=== PATIENT | male | born 1935 | race Caucasian/White ===

== ENCOUNTER 2019-03-26 11:27 | Emergency (ER) | payer MEDICARE, OTHER ==
[2019-03-26] MEDS ORDERED: Sodium Chloride 0.9% 10 ML Syringe FLUSH PRN (11:42)
[2019-03-26 12:18] LABS: CHLORIDE,CL 98 mmol/L (98-107); SODIUM,NA 141 mmol/L (136-145)
[2019-03-26] MEDS ORDERED: Sodium Chloride 0.9% 500 ML IV SCH (12:45)
--- NOTE | 2019-03-26 12:46 | EDM.PDOC ---
ED HPI GENERAL MEDICAL PROBLEM - General Chief Complaint: Neuro Symptoms/Deficits Stated Complaint: Stroke Code Time Seen by Provider: 03/26/19 11:45 Source of Information: Reports: Patient, Other ([facility] staff) History Limitations: Reports: Other (Patient is vague when giving history) - History of Present Illness INITIAL COMMENTS - FREE TEXT/NARRATIVE: Patient sent to ER for evaluation after being observed to have generalized decrease in cognitive functioning over the last three days. Also felt by staff to have decreased extremity strength/movement but no one particular side noted as being worse. Patient has history of generalized weakness in addition to needing to wear a brace on right leg. [facility] also was concerned that patient's right arm had BP of 142/110 and left arm had reading of 59/28. Once in ER it was thought that patient was slightly weaker on right side and stroke code called. Patient himself is aware that he was sent to the ER for "blood pressure concerns ". Initially thought he was at the [place] home, but later knew he was somewhere else to get looked at. He denies feeling any overall changes over the past week/several days. He feels like his usual self at this time. ROS was unremarkable. No known recent med changes. - Related Data Allergies Allergy/AdvReac Type Severity Reaction Status Date / Time celecoxib [From Celebrex] Allergy Cannot Verified 03/26/19 12:48 Remember colestipol Allergy Cannot Verified 03/26/19 12:48 Remember Past Medical History - History Comment History Comment: Refer to printed record provided by [facility] for full listing of chronic medical conditions. ED ROS GENERAL - Review of Systems Review Of Systems: See Below Constitutional: Reports: No Symptoms HEENT: Reports: No Symptoms (no acute changes) Respiratory: Reports: No Symptoms Cardiovascular: Reports: No Symptoms GI/Abdominal: Reports: No Symptoms : Reports: No Symptoms Musculoskeletal: Reports: Other (wears leg brace right leg, chronic weakness in this limb, no acute changes) Skin: Reports: No Symptoms Neurological: Reports: No Symptoms Psychiatric: Reports: No Symptoms Hematologic/Lymphatic: Reports: No Symptoms ED EXAM, GENERAL - Physical Exam Exam: See Below Exam Limited By: No Limitations General Appearance: Alert, WD/WN, No Apparent Distress Eye Exam: Bilateral Eye: EOMI, PERRL Ears: Normal External Exam Nose: Normal Inspection Throat/Mouth: Normal Inspection, Normal Lips, Normal Voice, No Airway Compromise Head: Atraumatic, Normocephalic Neck: Supple, Non-Tender, Full Range of Motion Respiratory/Chest: No Respiratory Distress, Lungs Clear, Normal Breath Sounds, No Accessory Muscle Use, Chest Non-Tender Cardiovascular: Regular Rate, Rhythm, No Murmur GI/Abdominal: Normal Bowel Sounds, Soft, Non-Tender, No Distention (Male) Exam: Deferred Rectal (Males) Exam: Deferred Back Exam: No: CVA Tenderness (L), CVA Tenderness (R), Muscle Spasm, Paraspinal Tenderness, Vertebral Tenderness Extremities: Non-Tender, Other (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 Has decreased strength and ability to raise right leg but this is normal per patient (has brace on leg). Able to lift left leg well. Able to squeeze medially well using both legs. Sensation appears to be intact limbs. ). No: Increased Warmth, Mottled, Pallor, Redness Neurological: Alert, Oriented, Normal Cognition, Sensory/Motor Deficit (chronic motor deficit right leg) Psychiatric: Normal Affect, Normal Mood Skin Exam: Warm, Dry, Intact, Normal Color EKG INTERPRETATION EKG Date: 03/26/19 Time: 11:43 Rhythm: Other (Afib with wide QRS) Rate (Beats/Min): 60 [place]: Normal P-Wave: Absent QRS: Wide ST-T: Other (morphology affected by wide QRS complex) QT: Normal Comparison: NA - No Prior EKG EKG Interpretation Comments: No previous EKG for comparison. Nonspecific intraventricular block. Course - Orders/Labs/Meds Labs: Laboratory Tests 03/26/19 03/26/19 03/26/19 Range/Units 11:45 11:45 11:45 WBC 6.7 (4.0-10.2) K/uL RBC 4.08 L (4.33-5.41) M/uL Hgb 12.5 L (13.1-16.8) g/dL Hct 37.7 L (39.0-49.0) % MCV 92.4 (84.0-98.0) fL MCH 30.6 (28.2-33.3) pg MCHC 33.2 (31.7-36.0) g/dL RDW 14.0 (11.2-14.1) % Plt Count 110 L (150-350) K/uL Neut % (Auto) 70.7 (45.0-80.0) % Lymph % (Auto) 17.8 (10.0-50.0) % [place] % (Auto) 8.7 (2.0-14.0) % Eos % (Auto) 2.5 (0.0-5.0) % Baso % (Auto) 0.3 (0.0-2.0) % Neut # (Auto) 4.73 (1.40-7.00) K/uL Lymph # (Auto) 1.19 (0.50-3.50) K/uL [place] # (Auto) 0.58 (0.00-1.00) K/uL Eos # (Auto) 0.17 (0.00-0.50) K/uL Baso # (Auto) 0.02 (0.00-0.20) K/uL PT (9.5-12.0) SEC INR APTT 31.4 H (21.0-31.3) SEC D-Dimer, Quantitative (0-400) ng/mL Sodium 141 (136-145) mmol/L Potassium 4.0 (3.5-5.1) mmol/L Chloride 98 (98-107) mmol/L Carbon Dioxide 34.7 H (21.0-32.0) mmol/L BUN 54 H (7-18) mg/dL Creatinine 1.73 H (0.51-1.17) mg/dL Est Cr Clr Drug Dosing TNP Estimated GFR (MDRD) 38 mL/min Glucose 213 H (74-106) mg/dL Calcium 9.6 (8.5-10.1) mg/dL Magnesium 2.4 (1.8-2.4) mg/dL Total Bilirubin 1.0 (0.2-1.0) mg/dL AST 18 (15-37) U/L ALT 25 (12-78) U/L Alkaline Phosphatase 124 H (46-116) IU/L Creatine Kinase 18 L (26-308) U/L Creatine Kinase Index 4.4 H (0.0-2.5) % CK-MB (CK-2) 0.80 (0.00-3.60) ng/mL Troponin I 0.010 (0.000-0.056) ng/mL NT-Pro-B Natriuret Pep 485 H (0-125) pg/mL Total Protein 6.5 (6.4-8.2) g/dL Albumin 3.0 L (3.4-5.0) g/dL Prolactin (2.6-13.1) ng/mL 03/26/19 03/26/19 03/26/19 Range/Units 11:45 11:45 11:45 WBC (4.0-10.2) K/uL RBC (4.33-5.41) M/uL Hgb (13.1-16.8) g/dL Hct (39.0-49.0) % MCV (84.0-98.0) fL MCH (28.2-33.3) pg MCHC (31.7-36.0) g/dL RDW (11.2-14.1) % Plt Count (150-350) K/uL Neut % (Auto) (45.0-80.0) % Lymph % (Auto) (10.0-50.0) % [place] % (Auto) (2.0-14.0) % Eos % (Auto) (0.0-5.0) % Baso % (Auto) (0.0-2.0) % Neut # (Auto) (1.40-7.00) K/uL Lymph # (Auto) (0.50-3.50) K/uL [place] # (Auto) (0.00-1.00) K/uL Eos # (Auto) (0.00-0.50) K/uL Baso # (Auto) (0.00-0.20) K/uL PT 17.4 H (9.5-12.0) SEC INR 1.6 APTT (21.0-31.3) SEC D-Dimer, Quantitative 384 (0-400) ng/mL Sodium (136-145) mmol/L Potassium (3.5-5.1) mmol/L Chloride (98-107) mmol/L Carbon Dioxide (21.0-32.0) mmol/L BUN (7-18) mg/dL Creatinine (0.51-1.17) mg/dL Est Cr Clr Drug Dosing Estimated GFR (MDRD) mL/min Glucose (74-106) mg/dL Calcium (8.5-10.1) mg/dL Magnesium (1.8-2.4) mg/dL Total Bilirubin (0.2-1.0) mg/dL AST (15-37) U/L ALT (12-78) U/L Alkaline Phosphatase (46-116) IU/L Creatine Kinase (26-308) U/L Creatine Kinase Index (0.0-2.5) % CK-MB (CK-2) (0.00-3.60) ng/mL Troponin I (0.000-0.056) ng/mL NT-Pro-B Natriuret Pep (0-125) pg/mL Total Protein (6.4-8.2) g/dL Albumin (3.4-5.0) g/dL Prolactin 25.8 H (2.6-13.1) ng/mL Meds: Medications Discontinued Medications Generic Name Dose Route Start Last Admin Trade Name Freq PRN Reason Stop Dose Admin Sodium Chloride 500 mls @ 250 mls/hr 03/26/19 12:45 Normal Saline IV ASDIRECTED ZACHERY Sodium Chloride 500 mls @ as directed 03/26/19 13:20 Normal Saline IV 03/26/19 13:21 .STK-MED ONE Sodium Chloride 10 ml 03/26/19 11:42 Saline Flush FLUSH ASDIRECTED PRN Keep Vein Open - Radiology Interpretation Free Text/Narrative:: Chest xray stable. 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 Heart size enlarged. No focal acute changes noted. CT Results Date: 03/26/19 CT Results Time: 12:03 (No acute changes suggestive of stroke noted. No other acute abnormalities identified by Radiology. ) - Re-Assessments/Exams Free Text/Narrative Re-Assessment/Exam: Stoke scale when performed scored "1" which was due to mild slurred speech. No obvious acute neuro deficits identified. Patient knew he was not at [facility]. Is relatively new to [facility] and was not able to identify himself as being in [facility]. No obvious acute findings noted on physical exam. Patient continued to say that he felt like usual self overall. He did not wish for us to contact Neurology once CT results available and discussed with him. Labs noted that patient's Bun/Cr were a bit higher than last reading. Small bolus of NS ordered. WBC and Troponin normal EKG showed Afib with wide complex QRS. No previous EKG on file. Call placed to [place] and confirmed with [facility] that 2017 EKG at their facility showed similar afib/flutter with ventricular paced rhythm. BPs stable. No significant deviation noted left vs right arm. No further intervention indicated at this time. Recommend continued observation by [facility] staff for any other additional changes or trends. To follow up on [facility] rounds with [facility] or at [facility] clinic if concerns continue. 03/27/19 17:16 Prolactin level elevated. Consider medication-related elevation in addition to patient's chronic kidney disease. To follow up on rounds. Departure - Departure Time of Disposition: 14:43 Disposition: DC/Tfer to SNF 03 Condition: Good Clinical Impression: Cognitive changes - Discharge Information *PRESCRIPTION DRUG MONITORING PROGRAM REVIEWED*: Not Applicable *COPY OF PRESCRIPTION DRUG MONITORING REPORT IN PATIENT PORSCHE: Not Applicable Referrals: Sheets-Kristen Kimball MD [Primary Care Provider] - Forms: ED Department Discharge Additional Instructions: Continue to observe for changes/trends. Follow up on rounds with [facility] or at [facility] clinic if no significant improvement is noted. Follow up otherwise as needed if sudden worsening observed.
[2019-03-26] MEDS ORDERED: Sodium Chloride 0.9% 500 ML IV ONE (13:20)
== END 2019-03-26 15:10 ==
LOC: LL.ED 11:27
DX: R41.89 Other symptoms and signs involving cognitive functions and awareness (principal); N18.9 Chronic kidney disease, unspecified; Z88.6 Allergy status to analgesic agent; Z88.8 Allergy status to other drugs, medicaments and biological substances
CPT/HCPCS: 36415; 70450; 71046; 80053; 82550; 82553; 83735; 83880; 84146; 84484; 85025; 85379; 85610; 85730; 93005; 96360; 96361; 99284; 99285-25; J7040

== ENCOUNTER 2019-04-01 07:21 | Inpatient (IN) | payer MEDICARE, OTHER ==
[2019-04-01] MEDS ORDERED: Sodium Chloride 0.9% 10 ML Syringe FLUSH PRN (08:08)
[2019-04-01 08:16] LABS: CHLORIDE,CL 100 mmol/L (98-107); SODIUM,NA 142 mmol/L (136-145)
--- NOTE | 2019-04-01 08:37 | EDM.PDOC ---
ED HPI GENERAL MEDICAL PROBLEM - General Chief Complaint: General Stated Complaint: altered LOC/ blood pressure problems Time Seen by Provider: 04/01/19 07:40 Source of Information: Reports: Assisted Records, RN Notes Reviewed History Limitations: Reports: Altered Mental Status - History of Present Illness INITIAL COMMENTS - FREE TEXT/NARRATIVE: Patient is a 83-year-old who for the last week has not been doing well yesterday had problems with hypotension at this time we discontinued multiple medications patient appeared to have been doing better then at night was noted by the nurses that he was weaker and by this morning he had slurred speech: Keep a conversation which is not normal for him and was mumbling Onset: Today Duration: Hour(s):, Getting Worse Location: Reports: Head, Generalized Severity: Severe Improves with: Reports: None Associated Symptoms: Reports: Other (Slow speech) - Related Data Allergies Allergy/AdvReac Type Severity Reaction Status Date / Time celecoxib [From Celebrex] Allergy Cannot Verified 04/01/19 09:04 Remember colestipol Allergy Cannot Verified 04/01/19 09:04 Remember Home Meds: Home Meds Acetaminophen [Tylenol] 650 mg PO BID PRN 04/01/19 [History] Albuterol Sulfate 0.63 mg IH QID PRN 04/01/19 [History] Albuterol [Ventolin HFA] 2 puff INH Q6H PRN 04/01/19 [History] Polyethylene Glycol 3350 [Miralax] 17 gm PO DAILY PRN 04/01/19 [History] Past Medical History - History Comment History Comment: Refer to printed record provided by [facility] for full listing of chronic medical conditions. ED ROS GENERAL - Review of Systems Review Of Systems: See Below Constitutional: Reports: Weakness, Other (Unable to transfer or speak) HEENT: Reports: No Symptoms Respiratory: Reports: No Symptoms Cardiovascular: Reports: Dyspnea on Exertion, Edema GI/Abdominal: Reports: No Symptoms : Reports: No Symptoms Musculoskeletal: Reports: No Symptoms Skin: Reports: No Symptoms Neurological: Reports: Trouble Speaking, Difficulty Walking, Weakness Psychiatric: Reports: No Symptoms Hematologic/Lymphatic: Reports: No Symptoms ED EXAM, GENERAL - Physical Exam Exam: See Below Exam Limited By: Physical Impairment General Appearance: Alert, WD/WN, Lethargic, Obtunded, Moderate Distress Ears: Normal External Exam, Normal Canal, Hearing Grossly Normal, Normal TMs Ear Exam: Bilateral Ear: Auricle Normal, Canal Normal, TM normal Nose: Normal Inspection, Normal Mucosa, No Blood Throat/Mouth: Normal Inspection, Normal Lips, Normal Teeth, Normal Gums, Normal Oropharynx, Normal Voice, No Airway Compromise Head: Atraumatic, Normocephalic Neck: Normal Inspection, Supple, Non-Tender, Full Range of Motion Respiratory/Chest: Decreased Breath Sounds Cardiovascular: Normal Peripheral Pulses, Regular Rate, Rhythm, No Edema, No Gallop, No JVD, No Murmur, No Rub GI/Abdominal: Normal Bowel Sounds, Soft, Non-Tender, No Organomegaly, No Distention, No Abnormal Bruit, No Mass (Male) Exam: Deferred Rectal (Males) Exam: Deferred Back Exam: Normal Inspection, Full Range of Motion, NT Extremities: Normal Inspection, Normal Range of Motion, Non-Tender, Normal Capillary Refill, No Pedal Edema Neurological: Slow to Respond Psychiatric: Normal Affect, Normal Mood Skin Exam: Warm, Dry, Intact, Normal Color, No Rash Lymphatic: No Adenopathy Course - Vital Signs Last Recorded V/S: Last Vital Signs Temp 97.3 F 04/01/19 07:22 Pulse 58 L 04/01/19 07:22 Resp 16 04/01/19 07:22 BP 142/82 H 04/01/19 07:22 Pulse Ox 97 04/01/19 07:22 - Orders/Labs/Meds Orders: Active Orders 24 hr Category Date Time Status Peripheral IV Care [RC] . DIRECTED Care 04/01/19 08:08 Active CXR [Chest 1V Frontal] [CR] Stat Exams 04/01/19 07:46 Taken Head wo Cont [CT] Stat Exams 04/01/19 08:10 Taken Sodium Chloride 0.9% [Saline Flush] Med 04/01/19 08:08 Active 10 ml FLUSH ASDIRECTED PRN Peripheral IV Insertion Adult [OM.PC] Routine Oth 04/01/19 08:08 Ordered Medication Orders Sodium Chloride (Saline Flush) 10 ml FLUSH ASDIRECTED PRN PRN Reason: Keep Vein Open Labs: Laboratory Tests 04/01/19 04/01/19 04/01/19 Range/Units 07:55 07:55 07:55 WBC 7.1 (4.0-10.2) K/uL RBC 4.54 (4.33-5.41) M/uL Hgb 13.9 (13.1-16.8) g/dL Hct 41.2 (39.0-49.0) % MCV 90.7 (84.0-98.0) fL MCH 30.6 (28.2-33.3) pg MCHC 33.7 (31.7-36.0) g/dL RDW 14.0 (11.2-14.1) % Plt Count 125 L (150-350) K/uL Neut % (Auto) 69.8 (45.0-80.0) % Lymph % (Auto) 17.2 (10.0-50.0) % [place] % (Auto) 9.8 (2.0-14.0) % Eos % (Auto) 2.8 (0.0-5.0) % Baso % (Auto) 0.4 (0.0-2.0) % Neut # (Auto) 4.96 (1.40-7.00) K/uL Lymph # (Auto) 1.22 (0.50-3.50) K/uL [place] # (Auto) 0.70 (0.00-1.00) K/uL Eos # (Auto) 0.20 (0.00-0.50) K/uL Baso # (Auto) 0.03 (0.00-0.20) K/uL PT 18.8 H (9.5-12.0) SEC INR 1.7 Sodium 142 (136-145) mmol/L Potassium 3.3 L (3.5-5.1) mmol/L Chloride 100 (98-107) mmol/L Carbon Dioxide 34.8 H (21.0-32.0) mmol/L BUN 55 H (7-18) mg/dL Creatinine 1.30 H (0.51-1.17) mg/dL Est Cr Clr Drug Dosing TNP Estimated GFR (MDRD) 52 mL/min Glucose 145 H (74-106) mg/dL Calcium 9.7 (8.5-10.1) mg/dL Total Bilirubin 1.1 H (0.2-1.0) mg/dL AST 21 (15-37) U/L ALT 27 (12-78) U/L Alkaline Phosphatase 131 H (46-116) IU/L Total Protein 7.3 (6.4-8.2) g/dL Albumin 3.4 (3.4-5.0) g/dL Meds: Medications Generic Name Dose Route Start Last Admin Trade Name Grzegorz PRN Reason Stop Dose Admin Sodium Chloride 10 ml 04/01/19 08:08 Saline Flush FLUSH ASDIRECTED PRN Keep Vein Open Departure - Departure Time of Disposition: 09:36 Disposition: Refer to Observation Condition: Serious Clinical Impression: Hypokalemia, CVA (cerebral vascular accident) - Discharge Information Referrals: Kristen Lafleur MD [Primary Care Provider] - Forms: ED Department Discharge - Problem List & Annotations (1) Hypokalemia SNOMED Code(s): 23865001 Code(s): E87.6 - HYPOKALEMIA Status: Acute Current Visit: Yes (2) CVA (cerebrovascular accident) SNOMED Code(s): 442612692 Code(s): I63.9 - CEREBRAL INFARCTION, UNSPECIFIED Status: Acute Current Visit: Yes Annotation/Comment:: Patient has progressively gotten weaker in the last [address] of speech CT of the head is negative at this time (3) Generalized weakness SNOMED Code(s): 69129214 Code(s): R53.1 - WEAKNESS Status: Acute Current Visit: Yes Annotation/ Comment:: Patient has decreased ambulation - Problem List Review Problem List Initiated/Reviewed/Updated: Yes - My Orders Last 24 Hours: My Active Orders 04/01/19 07:46 CXR [Chest 1V Frontal] [CR] Stat 04/01/19 08:08 Peripheral IV Care [RC] . DIRECTED Sodium Chloride 0.9% [Saline Flush] 10 ml FLUSH ASDIRECTED PRN Peripheral IV Insertion Adult [OM.PC] Routine 04/01/19 08:10 Head wo Cont [CT] Stat - Assessment/Plan Admission H&P: Please use this note as an admission H&P Last 24 Hours: My Active Orders 04/01/19 07:46 CXR [Chest 1V Frontal] [CR] Stat 04/01/19 08:08 Peripheral IV Care [RC] . DIRECTED Sodium Chloride 0.9% [Saline Flush] 10 ml FLUSH ASDIRECTED PRN Peripheral IV Insertion Adult [OM.PC] Routine 04/01/19 08:10 Head wo Cont [CT] Stat Plan: At this time we will admit him for observation patient is a ".
[2019-04-01] MEDS ORDERED: Potassium Chloride 10 MEQ in Premix Bag 2 BAG IV ONE (09:34)
[2019-04-01] MEDS: Sodium Chloride 0.9% 1,000 ML IV SCH ×2 (10:12→23:32)
[2019-04-01] MEDS: Potassium Chloride 10 MEQ in Premix Bag 1 BAG IV SCH ×2 (10:27→12:14)
[2019-04-01] MEDS ORDERED: Albuterol 0.021% 0.63 MG/3 ML Neb Soln NEB PRN (16:27)
[2019-04-01] MEDS ORDERED: Polyvinyl Alcohol 1.4% Ophth Soln 15 ML Bottle EYEBOTH PRN (16:27)
[2019-04-01] MEDS ORDERED: KETOCONAZOLE TP SCH (16:30)
[2019-04-01] MEDS ORDERED: guaiFENesin/Dextromethorphan 100-10 MG/5 ML Soln 10 ML Cup PO PRN (17:00)
[2019-04-01] MEDS: Polyvinyl Alcohol 1.4% Ophth Soln 15 ML Bottle EYEBOTH SCH (19:36)
[2019-04-01] MEDS: Carvedilol 25 MG Tab PO SCH (19:37)
[2019-04-02] MEDS: Acetaminophen 325 MG Tab PO PRN ×2 (02:46→19:32)
[2019-04-02] MEDS: Polyvinyl Alcohol 1.4% Ophth Soln 15 ML Bottle EYEBOTH SCH ×4 (08:51→19:33)
[2019-04-02] MEDS: Cholecalciferol (Vitamin D3) 25 MCG Tab PO SCH (08:55)
[2019-04-02] MEDS: Aspirin 81 MG Tab.EC PO SCH (08:56)
[2019-04-02] MEDS: Carvedilol 25 MG Tab PO SCH ×2 (08:56→19:31)
[2019-04-02] MEDS: Sodium Chloride 0.9% 1,000 ML IV SCH (14:33)
--- NOTE | 2019-04-02 19:50 | PCM.PN ---
- General Info Date of Service: 04/02/19 Admission Dx/Problem (Free Text): Patient is a 55-year-old who was brought in from the group home because of this disorientation arthralgia and confusion at this time patient was admitted and started on fluids today patient is less confused and much more oriented and able to speak clear - Review of Systems General: Reports: Weakness HEENT: Reports: No Symptoms Pulmonary: Reports: No Symptoms Cardiovascular: Reports: Dyspnea on Exertion Gastrointestinal: Reports: No Symptoms Genitourinary: Reports: No Symptoms Musculoskeletal: Reports: No Symptoms Skin: Reports: No Symptoms Neurological: Reports: Confusion, Trouble Speaking - Patient Data Vitals - Most Recent: Last Vital Signs Temp 97.4 F 04/02/19 16:00 Pulse 62 04/02/19 19:31 Resp 18 04/02/19 16:00 BP 140/60 04/02/19 19:31 Pulse Ox 97 04/02/19 16:00 Weight - Most Recent: 244 lb 0.016 oz I&O - Last 24 Hours: Intake & Output 04/02/19 04/02/19 04/02/19 06:59 14:59 22:59 Intake Total 738 1106 Output Total 450 300 475 Balance 288 -300 631 Lab Results Last 24 Hours: Laboratory Results - last 24 hr 04/01/19 04/02/19 04/02/19 Range/Units 21:43 07:10 12:20 POC Glucose 204 H 206 H 198 H (65-110) mg/dl 04/02/19 Range/Units 19:14 POC Glucose 206 H (65-110) mg/dl Med Orders - Current: Current Medications Acetaminophen (Tylenol) 650 mg PO BID PRN PRN Reason: Pain Last Admin: 04/02/19 19:32 Dose: 650 mg Albuterol (Proventil Neb Soln) 0.63 mg NEB QID PRN PRN Reason: Shortness of Breath Artificial Tears (Liquitears 1.4% Ophth Soln) 1 ml EYEBOTH QID ZACHERY Last Admin: 04/02/19 19:33 Dose: 1 drop Artificial Tears (Liquitears 1.4% Ophth Soln) 1 ml EYEBOTH QID PRN PRN Reason: Dry Eyes Aspirin (Halfprin) 81 mg PO DAILY ZACHERY Last Admin: 04/02/19 08:56 Dose: 81 mg Carvedilol (Coreg) 25 mg PO Q12HR COUNT INCLUDES THE [facility] Last Admin: 04/02/19 19:31 Dose: 25 mg Cholecalciferol (Vitamin D3) 25 mcg PO Q2D COUNT INCLUDES THE [facility] Last Admin: 04/02/19 08:55 Dose: 25 mcg Guaifenesin/Dextromethorphan (Robitussin Dm) 5 ml PO Q6H PRN PRN Reason: Cough Sodium Chloride (Normal Saline) 1,000 mls @ 75 mls/hr IV ASDIRECTED COUNT INCLUDES THE [facility] Last Admin: 04/02/19 14:33 Dose: 75 mls/hr Influenza Virus Vaccine (Pharmacy To Dose - Influenza Vaccine) 1 each IM ONETIME ONE Stop: 04/02/19 15:31 Non-Formulary Medication (Ketoconazole [Nizoral]) 1 applic TP ASDIRECTED COUNT INCLUDES THE [facility] Sodium Chloride (Saline Flush) 10 ml FLUSH ASDIRECTED PRN PRN Reason: Keep Vein Open Discontinued Medications Potassium Chloride 10 meq/ (Premix) 0 mls @ 50 mls/hr IV Q1H COUNT INCLUDES THE [facility] Stop: 04/01/19 11:31 Last Admin: 04/01/19 12:14 Dose: 50 mls/hr - Exam General: No Acute Distress, Lethargic, Obtunded HEENT: Pupils Equal, Pupils Reactive, EOMI, Mucous Membr. Moist/[place] Neck: Supple Lungs: Decreased Breath Sounds Cardiovascular: Regular Rate, Regular Rhythm GI/Abdominal Exam: Normal Bowel Sounds, Soft, Non-Tender, No Organomegaly, No Distention, No Abnormal Bruit, No Mass, Pelvis Stable Back Exam: Decreased Range of Motion Extremities: Normal Inspection, Normal Range of Motion, Non-Tender, No Pedal Edema, Normal Capillary Refill Neurological: Strength Equal Bilateral Psy/Mental Status: Alert, Normal Affect, Normal Mood - Problem List & Annotations (1) Hypokalemia SNOMED Code(s): 82483220 Code(s): E87.6 - HYPOKALEMIA Status: Acute Current Visit: Yes Annotation/Comment:: We'll start by mouth potassium (2) CVA (cerebrovascular accident) SNOMED Code(s): 286214854 Code(s): I63.9 - CEREBRAL INFARCTION, UNSPECIFIED Status: Acute Current Visit: Yes Annotation/Comment:: Patient seems to be improving CT of the head was negative for CVA we'll continue to observe start physical therapy when first available and continue correcting the potassium (3) Generalized weakness SNOMED Code(s): 13119062 Code(s): R53.1 - WEAKNESS Status: Acute Current Visit: Yes Annotation/ Comment:: Patient looks much better today will increase ambulation in the next 24 hours - Problem List Review Problem List Initiated/Reviewed/Updated: Yes - My Orders Last 24 Hours: My Active Orders 04/01/19 20:00 Carvedilol [Coreg] 25 mg PO Q12HR Polyvinyl Alcohol [LiquiTears 1.4% Ophth Soln] 1 ml EYEBOTH QID 04/02/19 08:00 Aspirin [Halfprin] 81 mg PO DAILY Cholecalciferol (Vitamin D3) [Vitamin D3] 25 mcg PO Q2D 04/02/19 11:20 Consult to Speech Language Pathology [UNIT OPERATOR Evaluation and Treatment] [CONS] Routine - Plan Plan:: Patient doing much better with reports and correction of electrolytes will observe for 24 hours before discharging him back to the group home
--- NOTE | 2019-04-02 21:04 | PCM.SN ---
- Free Text/Narrative Note: 04/02/19 Augusto Kimball MD He is evaluated. Speech has evaluated. Agree with Dr. Anthony note.
[2019-04-02] MEDS: Potassium Chloride 20 MEQ Tab.ER PO SCH (21:11)
[2019-04-03] MEDS: Sodium Chloride 0.9% 1,000 ML IV SCH (04:04)
[2019-04-03 07:59] LABS: CHLORIDE,CL 111 mmol/L (98-107); SODIUM,NA 148 mmol/L (136-145)
[2019-04-03] MEDS: Carvedilol 25 MG Tab PO SCH ×2 (08:11→20:28)
[2019-04-03] MEDS: Potassium Chloride 20 MEQ Tab.ER PO SCH (08:13)
[2019-04-03] MEDS: Acetaminophen 325 MG Tab PO PRN (08:14)
[2019-04-03] MEDS: Aspirin 81 MG Tab.EC PO SCH (08:14)
[2019-04-03] MEDS: Polyvinyl Alcohol 1.4% Ophth Soln 15 ML Bottle EYEBOTH SCH ×4 (08:16→20:28)
[2019-04-03] MEDS ORDERED: Menthol/Methyl Salicylate 85 GM Tube TOP PRN (11:01)
[2019-04-03] MEDS: Sodium Chloride 0.9% 10 ML Syringe FLUSH SCH (20:28)
--- NOTE | 2019-04-03 20:56 | PCM.PN ---
- General Info Date of Service: 04/03/19 Admission Dx/Problem (Free Text): Patient is a 55-year-old who was brought in from the care home because of this disorientation arthralgia and confusion at this time patient was admitted and started on fluids today patient is less confused and much more oriented and able to speak clear Functional Status: Reports: Tolerating Diet - Review of Systems General: Reports: Weakness HEENT: Reports: No Symptoms Pulmonary: Reports: No Symptoms Cardiovascular: Reports: No Symptoms Gastrointestinal: Reports: Decreased Appetite (improved today), Difficulty Swallowing Genitourinary: Reports: Retention Musculoskeletal: Reports: No Symptoms Skin: Reports: No Symptoms Neurological: Reports: Trouble Speaking, Difficulty Walking, Weakness, Change in Speech (garbled) Psychiatric: Reports: No Symptoms - Patient Data Vitals - Most Recent: Last Vital Signs Temp 97.4 F 04/03/19 19:31 Pulse 60 04/03/19 20:28 Resp 18 04/03/19 19:31 BP 154/62 H 04/03/19 20:28 Pulse Ox 96 04/03/19 19:31 Weight - Most Recent: 244 lb 0.016 oz I&O - Last 24 Hours: Intake & Output 04/03/19 04/03/19 04/03/19 06:59 14:59 22:59 Intake Total 770 150 816 Output Total 700 375 Balance 70 150 441 Lab Results Last 24 Hours: Laboratory Results - last 24 hr 04/03/19 04/03/19 04/03/19 Range/Units 07:30 07:30 07:30 WBC 8.4 (4.0-10.2) K/uL RBC 4.25 L (4.33-5.41) M/uL Hgb 13.3 (13.1-16.8) g/dL Hct 39.1 (39.0-49.0) % MCV 92.0 (84.0-98.0) fL MCH 31.3 (28.2-33.3) pg MCHC 34.0 (31.7-36.0) g/dL RDW 14.0 (11.2-14.1) % Plt Count 119 L (150-350) K/uL Neut % (Auto) 83.8 H (45.0-80.0) % Lymph % (Auto) 6.9 L (10.0-50.0) % Dunn % (Auto) 6.5 (2.0-14.0) % Eos % (Auto) 2.4 (0.0-5.0) % Baso % (Auto) 0.4 (0.0-2.0) % Neut # (Auto) 7.04 H (1.40-7.00) K/uL Lymph # (Auto) 0.58 (0.50-3.50) K/uL Dunn # (Auto) 0.55 (0.00-1.00) K/uL Eos # (Auto) 0.20 (0.00-0.50) K/uL Baso # (Auto) 0.03 (0.00-0.20) K/uL PT 23.2 H (9.5-12.0) SEC INR 2.2 Sodium 148 H (136-145) mmol/L Potassium 4.0 (3.5-5.1) mmol/L Chloride 111 H (98-107) mmol/L Carbon Dioxide 30.2 (21.0-32.0) mmol/L BUN 33 H (7-18) mg/dL Creatinine 0.97 (0.51-1.17) mg/dL Est Cr Clr Drug Dosing 55.49 mL/min Estimated GFR (MDRD) > 60 mL/min Glucose 217 H (74-106) mg/dL POC Glucose (65-110) mg/dl Calcium 8.9 (8.5-10.1) mg/dL 04/03/19 04/03/19 04/03/19 Range/Units 07:52 10:59 16:47 WBC (4.0-10.2) K/uL RBC (4.33-5.41) M/uL Hgb (13.1-16.8) g/dL Hct (39.0-49.0) % MCV (84.0-98.0) fL MCH (28.2-33.3) pg MCHC (31.7-36.0) g/dL RDW (11.2-14.1) % Plt Count (150-350) K/uL Neut % (Auto) (45.0-80.0) % Lymph % (Auto) (10.0-50.0) % Dunn % (Auto) (2.0-14.0) % Eos % (Auto) (0.0-5.0) % Baso % (Auto) (0.0-2.0) % Neut # (Auto) (1.40-7.00) K/uL Lymph # (Auto) (0.50-3.50) K/uL Dunn # (Auto) (0.00-1.00) K/uL Eos # (Auto) (0.00-0.50) K/uL Baso # (Auto) (0.00-0.20) K/uL PT (9.5-12.0) SEC INR Sodium (136-145) mmol/L Potassium (3.5-5.1) mmol/L Chloride (98-107) mmol/L Carbon Dioxide (21.0-32.0) mmol/L BUN (7-18) mg/dL Creatinine (0.51-1.17) mg/dL Est Cr Clr Drug Dosing mL/min Estimated GFR (MDRD) mL/min Glucose (74-106) mg/dL POC Glucose 214 H 224 H 238 H (65-110) mg/dl Calcium (8.5-10.1) mg/dL Med Orders - Current: Current Medications Acetaminophen (Tylenol) 650 mg PO BID PRN PRN Reason: Pain Last Admin: 04/03/19 08:14 Dose: 650 mg Albuterol (Proventil Neb Soln) 0.63 mg NEB QID PRN PRN Reason: Shortness of Breath Artificial Tears (Liquitears 1.4% Ophth Soln) 1 ml EYEBOTH QID [facility] Last Admin: 04/03/19 20:28 Dose: 1 drop Artificial Tears (Liquitears 1.4% Ophth Soln) 1 ml EYEBOTH QID PRN PRN Reason: Dry Eyes Aspirin (Halfprin) 81 mg PO DAILY [facility] Last Admin: 04/03/19 08:14 Dose: 81 mg Carvedilol (Coreg) 25 mg PO Q12HR [facility] Last Admin: 04/03/19 20:28 Dose: 25 mg Cholecalciferol (Vitamin D3) 25 mcg PO Q2D [facility] Last Admin: 04/02/19 08:55 Dose: 25 mcg Guaifenesin/Dextromethorphan (Robitussin Dm) 5 ml PO Q6H PRN PRN Reason: Cough Influenza Virus Vaccine (Pharmacy To Dose - Influenza Vaccine) 1 each IM ONETIME ONE Stop: 04/02/19 15:31 Methyl Salicylate (Icy Hot Cream) 0 gm TOP QID PRN PRN Reason: Pain (mild 1-3) Last Admin: 04/03/19 16:45 Dose: 1 applic Potassium Chloride (Klor-Con M20) 20 meq PO DAILY [facility] Last Admin: 04/03/19 08:13 Dose: 20 meq Sodium Chloride (Saline Flush) 10 ml FLUSH ASDIRECTED PRN PRN Reason: Keep Vein Open Sodium Chloride (Saline Flush) 10 ml FLUSH Q12HR [facility] Last Admin: 04/03/19 20:28 Dose: 10 ml Discontinued Medications Sodium Chloride (Normal Saline) 1,000 mls @ 75 mls/hr IV ASDIRECTED [facility] Last Admin: 04/03/19 04:04 Dose: 75 mls/hr Potassium Chloride 10 meq/ (Premix) 0 mls @ 50 mls/hr IV Q1H [facility] Stop: 04/01/19 11:31 Last Admin: 04/01/19 12:14 Dose: 50 mls/hr Non-Formulary Medication (Ketoconazole [Nizoral]) 1 applic TP ASDIRECTED [facility] - Exam Quality Assessment: Urine Catheter, DVT Prophylaxis (coumadin) General: No Acute Distress HEENT: Mucous Membr. Moist/[place] Neck: Trachea Midline, No JVD Lungs: Normal Respiratory Effort, Decreased Breath Sounds Cardiovascular: Regular Rate, Regular Rhythm GI/Abdominal Exam: Soft, Non-Tender, No Distention (Male) Exam: Other (robles catheter) Back Exam: Normal Inspection Extremities: Pedal Edema Skin: Warm, Dry, Intact, Ecchymosis Neurological: No New Focal Deficit, Other (pre-existing deficits) Psy/Mental Status: Other (some confusion) - Problem List & Annotations (1) CVA (cerebrovascular accident) SNOMED Code(s): 600746367 Code(s): I63.9 - CEREBRAL INFARCTION, UNSPECIFIED Status: Acute Current Visit: Yes Annotation/Comment:: Patient seems to be improving CT of the head was negative for CVA we'll continue to observe start physical therapy when first available and continue correcting the potassium (2) Generalized weakness SNOMED Code(s): 19667367 Code(s): R53.1 - WEAKNESS Status: Acute Current Visit: Yes Annotation/ Comment:: Patient looks much better today will increase ambulation in the next 24 hours (3) Hypokalemia SNOMED Code(s): 08566162 Code(s): E87.6 - HYPOKALEMIA Status: Acute Current Visit: Yes Annotation/Comment:: We'll start by mouth potassium (4) Cognitive changes SNOMED Code(s): 704303779 Code(s): R41.89 - OTH SYMPTOMS AND SIGNS W COGNITIVE FUNCTIONS AND AWARENESS Status: Acute Current Visit: No (5) Elevated prolactin level SNOMED Code(s): 540255427 Code(s): E22.9 - HYPERFUNCTION OF PITUITARY GLAND, UNSPECIFIED Status: Acute Current Visit: No (6) Chronic kidney disease SNOMED Code(s): 878112322 Code(s): N18.9 - CHRONIC KIDNEY DISEASE, UNSPECIFIED Status: Chronic Current Visit: No - Problem List Review Problem List Initiated/Reviewed/Updated: Yes - My Orders Last 24 Hours: My Active Orders 04/03/19 05:11 Consult to Occupational Therapy [OT Evaluation and Treatment] [CONS] Routine 04/03/19 08:00 PT Evaluation and Treatment [CONS] Routine 04/03/19 11:01 Menthol/Methyl Salicylate [Icy Hot Cream] 0 gm TOP QID PRN 04/03/19 20:00 Sodium Chloride 0.9% [Saline Flush] 10 ml FLUSH Q12HR 04/04/19 10:00 Swallowing Function w Video [CR] Routine - Plan Plan:: Patient doing much better with reports and correction of electrolytes will observe for 24 hours before discharging him back to the care home 04/03/19 Augusto Kimball MD Improving. Did eat today so will stop IV fluid. Video swallow tomorrow.
[2019-04-04] MEDS: Potassium Chloride 20 MEQ Tab.ER PO SCH (08:51)
[2019-04-04] MEDS: Carvedilol 25 MG Tab PO SCH ×2 (09:00→20:59)
[2019-04-04] MEDS: Acetaminophen 325 MG Tab PO PRN (09:01)
[2019-04-04] MEDS: Aspirin 81 MG Tab.EC PO SCH (09:01)
[2019-04-04] MEDS: Sodium Chloride 0.9% 10 ML Syringe FLUSH SCH ×2 (09:03→21:00)
[2019-04-04] MEDS: Polyvinyl Alcohol 1.4% Ophth Soln 15 ML Bottle EYEBOTH SCH ×4 (09:04→21:00)
[2019-04-04] MEDS: Cholecalciferol (Vitamin D3) 25 MCG Tab PO SCH (09:16)
[2019-04-04] MEDS: Finasteride 5 MG Tab PO SCH (15:10)
[2019-04-04] MEDS ORDERED: Insulin Lispro 100 Units/ML 3 ML Vial SUBCUT ONE (18:22)
[2019-04-04] MEDS ORDERED: Tamsulosin 0.4 MG Cap.ER PO SCH (20:00)
[2019-04-05 07:29] LABS: CHLORIDE,CL 108 mmol/L (98-107); SODIUM,NA 146 mmol/L (136-145)
[2019-04-05] MEDS: Polyvinyl Alcohol 1.4% Ophth Soln 15 ML Bottle EYEBOTH SCH ×2 (07:45→11:48)
[2019-04-05] MEDS: Finasteride 5 MG Tab PO SCH (07:45)
[2019-04-05] MEDS: Potassium Chloride 20 MEQ Tab.ER PO SCH (07:45)
[2019-04-05] MEDS: Carvedilol 25 MG Tab PO SCH (07:45)
[2019-04-05] MEDS: Sodium Chloride 0.9% 10 ML Syringe FLUSH SCH (07:46)
--- NOTE | 2019-04-07 23:10 | PCM.PN ---
- General Info Date of Service: 04/04/19 Admission Dx/Problem (Free Text): Patient is a 55-year-old who was brought in from the alf because of this disorientation arthralgia and confusion at this time patient was admitted and started on fluids today patient is less confused and much more oriented and able to speak clear Functional Status: Reports: Tolerating Diet - Review of Systems General: Reports: Weakness, Appetite (improving) HEENT: Reports: No Symptoms Pulmonary: Reports: No Symptoms Cardiovascular: Reports: No Symptoms Gastrointestinal: Reports: No Symptoms Genitourinary: Reports: Retention Musculoskeletal: Reports: No Symptoms Skin: Reports: No Symptoms Neurological: Reports: Pre-Existing Deficit, Trouble Speaking, Difficulty Walking, Weakness Psychiatric: Reports: Confusion - Patient Data Vitals - Most Recent: Last Vital Signs Temp 98 F 04/05/19 12:00 Pulse 96 04/05/19 12:00 Resp 16 04/05/19 12:00 BP 97/45 L 04/05/19 12:00 Pulse Ox 95 04/05/19 12:00 Weight - Most Recent: 244 lb 0.016 oz Med Orders - Current: Current Medications Discontinued Medications Acetaminophen (Tylenol) 650 mg PO BID PRN PRN Reason: Pain Last Admin: 04/04/19 09:01 Dose: 650 mg Albuterol (Proventil Neb Soln) 0.63 mg NEB QID PRN PRN Reason: Shortness of Breath Artificial Tears (Liquitears 1.4% Ophth Soln) 1 ml EYEBOTH QID COUNTS INCLUDE 234 BEDS AT THE [facility] Last Admin: 04/05/19 11:48 Dose: 1 drop Artificial Tears (Liquitears 1.4% Ophth Soln) 1 ml EYEBOTH QID PRN PRN Reason: Dry Eyes Aspirin (Halfprin) 81 mg PO DAILY COUNTS INCLUDE 234 BEDS AT THE [facility] Last Admin: 04/04/19 09:01 Dose: 81 mg Carvedilol (Coreg) 25 mg PO Q12HR COUNTS INCLUDE 234 BEDS AT THE [facility] Last Admin: 04/05/19 07:45 Dose: 25 mg Cholecalciferol (Vitamin D3) 25 mcg PO Q2D COUNTS INCLUDE 234 BEDS AT THE [facility] Last Admin: 04/04/19 09:16 Dose: 25 mcg Finasteride (Proscar) 5 mg PO DAILY [facility]S INCLUDE 234 BEDS AT THE [facility] Last Admin: 04/05/19 07:45 Dose: 5 mg Guaifenesin/Dextromethorphan (Robitussin Dm) 5 ml PO Q6H PRN PRN Reason: Cough Sodium Chloride (Normal Saline) 1,000 mls @ 75 mls/hr IV ASDIRECTED COUNTS INCLUDE 234 BEDS AT THE [facility] Last Admin: 04/03/19 04:04 Dose: 75 mls/hr Potassium Chloride 10 meq/ (Premix) 0 mls @ 50 mls/hr IV Q1H [facility] Stop: 04/01/19 11:31 Last Admin: 04/01/19 12:14 Dose: 50 mls/hr Influenza Virus Vaccine (Pharmacy To Dose - Influenza Vaccine) 1 each IM ONETIME ONE Stop: 04/02/19 15:31 Influenza Virus Vaccine (Fluzone High-Dose Syringe) 180 mcg IM .ONCE ONE Stop: 04/04/19 18:46 Insulin Human Lispro (Humalog) 4 unit SUBCUT ONETIME ONE Stop: 04/04/19 18:23 Last Admin: 04/04/19 18:38 Dose: 4 unit Methyl Salicylate (Icy Hot Cream) 0 gm TOP QID PRN PRN Reason: Pain (mild 1-3) Last Admin: 04/03/19 16:45 Dose: 1 applic Non-Formulary Medication (Ketoconazole [Nizoral]) 1 applic TP ASDIRECTED COUNTS INCLUDE 234 BEDS AT THE [facility] Potassium Chloride (Klor-Con M20) 20 meq PO DAILY [facility] INCLUDE 234 BEDS AT THE [facility] Last Admin: 04/05/19 07:45 Dose: 20 meq Sodium Chloride (Saline Flush) 10 ml FLUSH ASDIRECTED PRN PRN Reason: Keep Vein Open Sodium Chloride (Saline Flush) 10 ml FLUSH Q12HR COUNTS INCLUDE 234 BEDS AT THE [facility] Last Admin: 04/05/19 07:46 Dose: 10 ml Tamsulosin HCl (Flomax) 0.4 mg PO BEDTIME COUNTS INCLUDE 234 BEDS AT THE [facility] Last Admin: 04/04/19 20:59 Dose: 0.4 mg - Exam Quality Assessment: Urine Catheter General: No Acute Distress HEENT: Mucous Membr. Moist/[place] Neck: Trachea Midline, No JVD Lungs: Normal Respiratory Effort, Decreased Breath Sounds Cardiovascular: Regular Rate, Regular Rhythm GI/Abdominal Exam: Soft, Non-Tender, No Distention (Male) Exam: Other (blood in robles catheter) Back Exam: Decreased Range of Motion Extremities: Non-Tender, Pedal Edema Skin: Warm, Dry, Intact, Ecchymosis Neurological: Other (speech still garbled) Psy/Mental Status: Normal Affect, Normal Mood - Problem List & Annotations (1) CVA (cerebrovascular accident) SNOMED Code(s): 092252791 Code(s): I63.9 - CEREBRAL INFARCTION, UNSPECIFIED Status: Acute Annotation/Comment:: Patient seems to be improving CT of the head was negative for CVA we'll continue to observe start physical therapy when first available and continue correcting the potassium (2) Generalized weakness SNOMED Code(s): 92114395 Code(s): R53.1 - WEAKNESS Status: Acute Annotation/Comment:: Patient looks much better today will increase ambulation in the next 24 hours (3) Hypokalemia SNOMED Code(s): 19431727 Code(s): E87.6 - HYPOKALEMIA Status: Acute Annotation/Comment:: We'll start by mouth potassium (4) Cognitive changes SNOMED Code(s): 683083760 Code(s): R41.89 - [facility] SYMPTOMS AND SIGNS W COGNITIVE FUNCTIONS AND AWARENESS Status: Acute (5) Elevated prolactin level SNOMED Code(s): 387363464 Code(s): E22.9 - HYPERFUNCTION OF PITUITARY GLAND, UNSPECIFIED Status: Acute (6) Chronic kidney disease SNOMED Code(s): 695514024 Code(s): N18.9 - CHRONIC KIDNEY DISEASE, UNSPECIFIED Status: Chronic - Problem List Review Problem List Initiated/Reviewed/Updated: Yes - Plan Plan:: Patient doing much better with reports and correction of electrolytes will observe for 24 hours before discharging him back to the alf 04/03/19 Augusto Kimball MD Improving. Did eat today so will stop IV fluid. Video swallow tomorrow. 04/04/19 Blood clots in robles. Nurse irrigating. Coumadin has been on hold. PT-INR still therapeutic. Hold aspirin. Speech evaluating him. PT-OT working with him.
--- NOTE | 2019-04-07 23:15 | PCM.PN ---
- General Info Date of Service: 04/05/19 (late entry) Functional Status: Reports: Tolerating Diet - Review of Systems General: Reports: Weakness HEENT: Reports: No Symptoms Pulmonary: Reports: No Symptoms Cardiovascular: Reports: No Symptoms Gastrointestinal: Reports: No Symptoms Genitourinary: Reports: Retention Musculoskeletal: Reports: No Symptoms Skin: Reports: Bruising Neurological: Reports: Pre-Existing Deficit, Trouble Speaking, Difficulty Walking, Weakness Psychiatric: Reports: Confusion - Patient Data Vitals - Most Recent: Last Vital Signs Temp 98 F 04/05/19 12:00 Pulse 96 04/05/19 12:00 Resp 16 04/05/19 12:00 BP 97/45 L 04/05/19 12:00 Pulse Ox 95 04/05/19 12:00 Weight - Most Recent: 244 lb 0.016 oz Med Orders - Current: Current Medications Discontinued Medications Acetaminophen (Tylenol) 650 mg PO BID PRN PRN Reason: Pain Last Admin: 04/04/19 09:01 Dose: 650 mg Albuterol (Proventil Neb Soln) 0.63 mg NEB QID PRN PRN Reason: Shortness of Breath Artificial Tears (Liquitears 1.4% Ophth Soln) 1 ml EYEBOTH QID [facility] Last Admin: 04/05/19 11:48 Dose: 1 drop Artificial Tears (Liquitears 1.4% Ophth Soln) 1 ml EYEBOTH QID PRN PRN Reason: Dry Eyes Aspirin (Halfprin) 81 mg PO DAILY [facility] Last Admin: 04/04/19 09:01 Dose: 81 mg Carvedilol (Coreg) 25 mg PO Q12HR [facility] Last Admin: 04/05/19 07:45 Dose: 25 mg Cholecalciferol (Vitamin D3) 25 mcg PO Q2D [facility] Last Admin: 04/04/19 09:16 Dose: 25 mcg Finasteride (Proscar) 5 mg PO DAILY [facility] Last Admin: 04/05/19 07:45 Dose: 5 mg Guaifenesin/Dextromethorphan (Robitussin Dm) 5 ml PO Q6H PRN PRN Reason: Cough Sodium Chloride (Normal Saline) 1,000 mls @ 75 mls/hr IV ASDIRECTED [facility] Last Admin: 04/03/19 04:04 Dose: 75 mls/hr Potassium Chloride 10 meq/ (Premix) 0 mls @ 50 mls/hr IV Q1H [facility] Stop: 04/01/19 11:31 Last Admin: 04/01/19 12:14 Dose: 50 mls/hr Influenza Virus Vaccine (Pharmacy To Dose - Influenza Vaccine) 1 each IM ONETIME ONE Stop: 04/02/19 15:31 Influenza Virus Vaccine (Fluzone High-Dose 2019-20 Syringe) 180 mcg IM .ONCE ONE Stop: 04/04/19 18:46 Insulin Human Lispro (Humalog) 4 unit SUBCUT ONETIME ONE Stop: 04/04/19 18:23 Last Admin: 04/04/19 18:38 Dose: 4 unit Methyl Salicylate (Icy Hot Cream) 0 gm TOP QID PRN PRN Reason: Pain (mild 1-3) Last Admin: 04/03/19 16:45 Dose: 1 applic Non-Formulary Medication (Ketoconazole [Nizoral]) 1 applic TP ASDIRECTED [facility] Potassium Chloride (Klor-Con M20) 20 meq PO DAILY [facility] Last Admin: 04/05/19 07:45 Dose: 20 meq Sodium Chloride (Saline Flush) 10 ml FLUSH ASDIRECTED PRN PRN Reason: Keep Vein Open Sodium Chloride (Saline Flush) 10 ml FLUSH Q12HR [facility] Last Admin: 04/05/19 07:46 Dose: 10 ml Tamsulosin HCl (Flomax) 0.4 mg PO BEDTIME [facility] Last Admin: 04/04/19 20:59 Dose: 0.4 mg - Exam Quality Assessment: Urine Catheter (blood clearing) General: Cooperative, No Acute Distress HEENT: Mucous Membr. Moist/[place] Neck: Trachea Midline, No JVD Lungs: Normal Respiratory Effort, Decreased Breath Sounds Cardiovascular: Regular Rate, Regular Rhythm GI/Abdominal Exam: Soft, Non-Tender, No Distention (Male) Exam: Other (robles catheter) Back Exam: Normal Inspection Extremities: Non-Tender, Pedal Edema Skin: Warm, Dry, Intact, Ecchymosis Wound/Incisions: Healing Well Neurological: No New Focal Deficit Psy/Mental Status: Normal Affect, Normal Mood - Problem List & Annotations (1) CVA (cerebrovascular accident) SNOMED Code(s): 723194588 Code(s): I63.9 - CEREBRAL INFARCTION, UNSPECIFIED Status: Acute Qualifiers: CVA mechanism: occlusion Precerebral and cerebral artery: middle cerebral artery Laterality of affected vessel: bilateral Qualified Code(s): I63.513 - Cerebral infarction due to unspecified occlusion or stenosis of bilateral middle cerebral arteries (2) Generalized weakness SNOMED Code(s): 89873485 Code(s): R53.1 - WEAKNESS Status: Acute (3) Hypokalemia SNOMED Code(s): 00836241 Code(s): E87.6 - HYPOKALEMIA Status: Acute (4) Cognitive changes SNOMED Code(s): 242160703 Code(s): R41.89 - [facility] SYMPTOMS AND SIGNS W COGNITIVE FUNCTIONS AND AWARENESS Status: Acute (5) Elevated prolactin level SNOMED Code(s): 535169905 Code(s): E22.9 - HYPERFUNCTION OF PITUITARY GLAND, UNSPECIFIED Status: Acute (6) Chronic kidney disease SNOMED Code(s): 423443358 Code(s): N18.9 - CHRONIC KIDNEY DISEASE, UNSPECIFIED Status: Chronic Qualifiers: Chronic kidney disease stage: stage 3 (moderate) Qualified Code(s): N18.3 - Chronic kidney disease, stage 3 (moderate) - Problem List Review Problem List Initiated/Reviewed/Updated: Yes - Plan Plan:: Patient doing much better with reports and correction of electrolytes will observe for 24 hours before discharging him [facility] 04/03/19 Augusto Kimball MD Improving. Did eat today so will stop IV fluid. Video swallow tomorrow. 04/04/19 (late entry) Blood clots in robles. Nurse irrigating. Coumadin has been on hold. PT-INR still therapeutic. Hold aspirin. Speech evaluating him. PT-OT working with him. 04/05/19 (late entry) Augusto Kimball MD He is ready to be transferred back to skilled facility [facility].
--- NOTE | 2019-04-07 23:18 | PCM.DCSUM1 ---
Discharge Summary - Hospital Course Diagnosis: Stroke: Yes Modified Annamarie Scale: Mod.Sev.Disability ;Unable to Walk/Attend Bodily Needs W/ O Assistance Modified Pleasants Scale Score: 4 - Discharge Data Discharge Date: 04/05/19 Discharge Disposition: DC/Tfer to SNF 03 Condition: Fair - Referral to Home Health Primary Care Physician: Kristen Lafleur MD - Discharge Diagnosis/Problem(s) (1) CVA (cerebrovascular accident) SNOMED Code(s): 971923638 ICD Code: I63.9 - CEREBRAL INFARCTION, UNSPECIFIED Status: Acute Qualifiers: CVA mechanism: occlusion Precerebral and cerebral artery: middle cerebral artery Laterality of affected vessel: bilateral Qualified Code(s): I63.513 - Cerebral infarction due to unspecified occlusion or stenosis of bilateral middle cerebral arteries (2) Generalized weakness SNOMED Code(s): 94343579 ICD Code: R53.1 - WEAKNESS Status: Acute (3) Hypokalemia SNOMED Code(s): 47295176 ICD Code: E87.6 - HYPOKALEMIA Status: Acute (4) Cognitive changes SNOMED Code(s): 290650203 ICD Code: R41.89 - OT SYMPTOMS AND SIGNS W COGNITIVE FUNCTIONS AND AWARENESS Status: Acute (5) Elevated prolactin level SNOMED Code(s): 726128986 ICD Code: E22.9 - HYPERFUNCTION OF PITUITARY GLAND, UNSPECIFIED Status: Acute (6) Chronic kidney disease SNOMED Code(s): 732475143 ICD Code: N18.9 - CHRONIC KIDNEY DISEASE, UNSPECIFIED Status: Chronic Qualifiers: Chronic kidney disease stage: stage 3 (moderate) Qualified Code(s): N18.3 - Chronic kidney disease, stage 3 (moderate) - Patient Summary/Data Consults: Consultations 04/02/19 11:20 Consult to Speech Language Pathology [[employer] Evaluation and Treatment] [CONS] Routine 04/03/19 05:11 Consult to Occupational Therapy [OT Evaluation and Treatment] [CONS] Routine 04/03/19 08:00 PT Evaluation and Treatment [CONS] Routine - Patient Instructions Diet: Diabetic Diet, Mechanical Soft (Thin liquids, no straws) Activity: As Tolerated Driving: Do Not Drive Showering/Bathing: May Shower Other/Special Instructions: robles catheter routine cares. PT-OT referral to evaluate and treat. ST referral to evaluate and treat. - Discharge Plan *PRESCRIPTION DRUG MONITORING PROGRAM REVIEWED*: Not Applicable *COPY OF PRESCRIPTION DRUG MONITORING REPORT IN PATIENT PORSCHE: Not Applicable Prescriptions/Med Rec: Finasteride [Proscar] 5 mg PO DAILY #30 tablet Tamsulosin [Flomax] 0.4 mg PO BEDTIME #30 cap.er Home Medications: Home Meds Acetaminophen [Tylenol] 650 mg PO BID PRN 04/01/19 [History] Albuterol Sulfate 0.63 mg IH QID PRN 04/01/19 [History] Albuterol [Ventolin HFA] 2 puff INH Q6H PRN 04/01/19 [History] Aspirin [Halfprin] 81 mg PO DAILY 04/01/19 [History] Carvedilol 25 mg PO BID 04/01/19 [History] Cholecalciferol (Vitamin D3) [Vitamin D3] 1,000 unit PO Q2D 04/01/19 [History] Dextran 70/Hypromellose [Artificial Tears] 1 drop EYEBOTH QID PRN 04/01/19 [ History] Dextran 70/Hypromellose [Artificial Tears] 1 drop EYEBOTH QID PRN 04/01/19 [ History] Digoxin 125 mcg PO DAILY 04/01/19 [History] Insulin Aspart [NovoLOG] 20 units SUBCUT TIDMEALS 04/01/19 [History] Insulin Glarg,Human.Rec.Analog [Lantus] 64 unit SQ DAILY@20 04/01/19 [History] Ketoconazole [Nizoral 2% Crm] 1 applic TOP ASDIRECTED 04/01/19 [History] Ketoconazole [Nizoral] 1 applic TP ASDIRECTED 04/01/19 [History] Lactulose [Chronulac] 15 ml PO DAILY 04/01/19 [History] Methyl Salicylate/Menthol [Muscle Rub] 85 gm TP QID PRN 04/01/19 [History] Miconazole Nitrate [Micro-Guard] 85 gm TP BID 04/01/19 [History] Mineral Oil/I-Prop Myr/Water [Minerin] 473 ml TP ASDIRECTED PRN 04/01/19 [ History] Naproxen Sodium 220 mg PO BID PRN 04/01/19 [History] Nitroglycerin [Nitrostat] 0.4 mg SL ASDIRECTED PRN 04/01/19 [History] Polyethylene Glycol 3350 [Miralax] 17 gm PO DAILY PRN 04/01/19 [History] Simvastatin 20 mg PO DAILY@199904/01/19 [History] Sodium Chloride/Aloe Vera [[place] Saline Nasal Gel [place]] 2 sprays NASBOTH BID [History] Tiotropium [Spiriva HandiHaler] 18 mcg INH DAILY 04/01/19 [History] Vit A/Vit C/Vit E/Zinc/Copper [Preservision Areds Softgel] 1 each PO BID [History] Warfarin Sodium [Coumadin] 5 mg PO SUMOWEFRSA@169904/01/19 [History] Warfarin [Coumadin] 2.5 mg PO TUTH@169904/01/19 [History] guaiFENesin/Dextromethorphan [Guaifenesin Dm Syrup] 5 ml PO Q6H PRN 04/01/19 [ History] Vit C/E/Zn/Coppr/Lutein/Zeaxan [Preservision Areds 2 Softgel] 1 cap PO BID 04/02 [History] Finasteride [Proscar] 5 mg PO DAILY #30 tablet 04/05/19 [Rx] Tamsulosin [Flomax] 0.4 mg PO BEDTIME #30 cap.er 04/05/19 [Rx] Oxygen Therapy Mode: Nasal Cannula Oxygen Flow Rate (L/min): 2 Forms: ED Department Discharge Referrals: Kristen Lafleur MD [Primary Care Provider] - - Discharge Summary/Plan Comment DC Time >30 min.: Yes - Patient Data Vitals - Most Recent: Last Vital Signs Temp 98 F 04/05/19 12:00 Pulse 96 04/05/19 12:00 Resp 16 04/05/19 12:00 BP 97/45 L 04/05/19 12:00 Pulse Ox 95 04/05/19 12:00 Weight - Most Recent: 244 lb 0.016 oz Med Orders - Current: Current Medications Discontinued Medications Acetaminophen (Tylenol) 650 mg PO BID PRN PRN Reason: Pain Last Admin: 04/04/19 09:01 Dose: 650 mg Albuterol (Proventil Neb Soln) 0.63 mg NEB QID PRN PRN Reason: Shortness of Breath Artificial Tears (Liquitears 1.4% Ophth Soln) 1 ml EYEBOTH QID [facility] Last Admin: 04/05/19 11:48 Dose: 1 drop Artificial Tears (Liquitears 1.4% Ophth Soln) 1 ml EYEBOTH QID PRN PRN Reason: Dry Eyes Aspirin (Halfprin) 81 mg PO DAILY [facility] Last Admin: 04/04/19 09:01 Dose: 81 mg Carvedilol (Coreg) 25 mg PO Q12HR [facility] Last Admin: 04/05/19 07:45 Dose: 25 mg Cholecalciferol (Vitamin D3) 25 mcg PO Q2D [facility] Last Admin: 04/04/19 09:16 Dose: 25 mcg Finasteride (Proscar) 5 mg PO DAILY [facility] Last Admin: 04/05/19 07:45 Dose: 5 mg Guaifenesin/Dextromethorphan (Robitussin Dm) 5 ml PO Q6H PRN PRN Reason: Cough Sodium Chloride (Normal Saline) 1,000 mls @ 75 mls/hr IV ASDIRECTED [facility] Last Admin: 04/03/19 04:04 Dose: 75 mls/hr Potassium Chloride 10 meq/ (Premix) 0 mls @ 50 mls/hr IV Q1H [facility] Stop: 04/01/19 11:31 Last Admin: 04/01/19 12:14 Dose: 50 mls/hr Influenza Virus Vaccine (Pharmacy To Dose - Influenza Vaccine) 1 each IM ONETIME ONE Stop: 04/02/19 15:31 Influenza Virus Vaccine (Fluzone High-Dose 2019-20 Syringe) 180 mcg IM .ONCE ONE Stop: 04/04/19 18:46 Insulin Human Lispro (Humalog) 4 unit SUBCUT ONETIME ONE Stop: 04/04/19 18:23 Last Admin: 04/04/19 18:38 Dose: 4 unit Methyl Salicylate (Icy Hot Cream) 0 gm TOP QID PRN PRN Reason: Pain (mild 1-3) Last Admin: 04/03/19 16:45 Dose: 1 applic Non-Formulary Medication (Ketoconazole [Nizoral]) 1 applic TP ASDIRECTED [facility] Potassium Chloride (Klor-Con M20) 20 meq PO DAILY [facility] Last Admin: 04/05/19 07:45 Dose: 20 meq Sodium Chloride (Saline Flush) 10 ml FLUSH ASDIRECTED PRN PRN Reason: Keep Vein Open Sodium Chloride (Saline Flush) 10 ml FLUSH Q12HR [facility] Last Admin: 04/05/19 07:46 Dose: 10 ml Tamsulosin HCl (Flomax) 0.4 mg PO BEDTIME [facility] Last Admin: 04/04/19 20:59 Dose: 0.4 mg
== END 2019-04-05 15:30 | DRG 65 ==
LOC: LL.ED 07:21 → LL.MS 09:29 → UNDOADMOB 09:29 → LL.MS 10:40 → INTOOBSV 16:23 → OBSVTOIN 16:23
PROVIDERS: ADMIT Family Medicine; ATTEND Family Medicine
DX: I63.9 Cerebral infarction, unspecified (principal); R47.02 Dysphasia; I63.513 Cerebral infarction due to unspecified occlusion or stenosis of bilateral middle cerebral arteries; R53.1 Weakness; E22.1 Hyperprolactinemia; R41.89 Other symptoms and signs involving cognitive functions and awareness; I50.30 Unspecified diastolic (congestive) heart failure; E87.6 Hypokalemia; G31.84 Mild cognitive impairment of uncertain or unknown etiology; N18.3 Chronic kidney disease, stage 3 (moderate); I95.9 Hypotension, unspecified; E66.9 Obesity, unspecified; I48.91 Unspecified atrial fibrillation; E11.22 Type 2 diabetes mellitus with diabetic chronic kidney disease; E78.00 Pure hypercholesterolemia, unspecified; J44.9 Chronic obstructive pulmonary disease, unspecified; M19.90 Unspecified osteoarthritis, unspecified site; Z79.82 Long term (current) use of aspirin; Z79.01 Long term (current) use of anticoagulants; Z79.899 Other long term (current) drug therapy; Z79.4 Long term (current) use of insulin; Z88.8 Allergy status to other drugs, medicaments and biological substances; Z91.14 Patient's other noncompliance with medication regimen; Z95.0 Presence of cardiac pacemaker; Z95.5 Presence of coronary angioplasty implant and graft; Z88.1 Allergy status to other antibiotic agents; Z68.36 Body mass index [BMI] 36.0-36.9, adult
CPT/HCPCS: 36415; 51702; 70450; 71045; 80053; 81001; 85025; 85610; 96374; 99285; J3480 ×2; J7030; 51798; 74230; 80048; 82140; 82962; 92526-GN; 92610-GN; 92611-GN; 97110-GP; 97163-GP; 97530-GP; A9270-GY; J1815

== ENCOUNTER 2022-10-14 14:23 | Emergency (ER) | payer OTHER, MEDICARE, MEDICAID ==
[2022-10-14] MEDS ORDERED: Sodium Chloride 0.9% 10 ML Syringe FLUSH PRN (14:25)
[2022-10-14] MEDS ORDERED: Sodium Chloride 0.9% 1,000 ML IV ONE (14:27)
[2022-10-14] MEDS: Nitroglycerin 0.4 MG Tab.SL SL PRN ×3 (14:43→14:53)
[2022-10-14 15:28] LABS: ANION GAP 8.8 meq/L (7-15); CHLORIDE,CL 104 mmol/L (98-107); ESTIMATED GFR 49 mL/min (>=60); SODIUM,NA 145 mmol/L (136-145)
[2022-10-14 16:13] LABS: CORONAVIRUS COVID-19 NAA NEGATIVE (NEGATIVE); RESPIRATORY SYNCYTIAL VIR NAA NEGATIVE (NEGATIVE)
[2022-10-14 17:47] VITALS: BP 166/66; PULSE 62
== END 2022-10-14 16:27 ==
LOC: LL.ED 14:23
DX: I20.9 Angina pectoris, unspecified (principal); I11.0 Hypertensive heart disease with heart failure; I50.9 Heart failure, unspecified; E11.9 Type 2 diabetes mellitus without complications; J44.9 Chronic obstructive pulmonary disease, unspecified; E66.9 Obesity, unspecified; Z68.1 Body mass index [BMI] 19.9 or less, adult; Z88.8 Allergy status to other drugs, medicaments and biological substances; Z95.1 Presence of aortocoronary bypass graft; Z79.01 Long term (current) use of anticoagulants; Z79.899 Other long term (current) drug therapy; Z79.4 Long term (current) use of insulin; Z20.822 Contact with and (suspected) exposure to COVID-19
CPT/HCPCS: 0241U; 36415; 71045; 80053; 82550; 83605; 84484; 85025; 93005; 93010; 99284; 99285; A9270-GY

== ENCOUNTER 2022-10-24 09:49 | Emergency (ER) | payer OTHER, MEDICARE, MEDICAID ==
[2022-10-24 10:53] LABS: BASOPHILS ABSOLUTE AUTO 0.03 K/uL (0.00-0.20); BASOPHILS PERCENT AUTO 0.6 % (0.0-2.0); EOSINOPHILS PERCENT AUTO 3.7 % (0.0-5.0); HEMATOCRIT 37.7 % (39.0-49.0); HEMOGLOBIN 11.9 g/dL (13.1-16.8); LYMPHOCYTES ABSOLUTE AUTO 0.93 K/uL (0.50-3.50); LYMPHOCYTES PERCENT AUTO 17.1 % (10.0-50.0); MEAN CORPUSCULAR HEMOGLOBIN 31.2 pg (28.2-33.3); MEAN CORPUSCULAR HGB CONC 31.6 g/dL (31.7-36.0); MONOCYTES ABSOLUTE AUTO 0.49 K/uL (0.00-1.00); NEUTROPHILS PERCENT AUTO 69.6 % (45.0-80.0); PLATELET COUNT,PLT 108 K/uL (150-350); RED BLOOD CELL COUNT 3.81 M/uL (4.33-5.41); RED CELL DISTRIBUTION WIDTH 14.8 % (11.2-14.1); WHITE BLOOD CELL COUNT,WBC 5.5 K/uL (4.0-10.2)
[2022-10-24 11:21] LABS: ALANINE AMINOTRANSFERASE,ALT 28 U/L (12-78); ALBUMIN 3.2 g/dL (3.4-5.0); ALKALINE PHOSPHATASE 163 IU/L (46-116); ASPARTATE AMNIOTRANSFERASE,AST 24 U/L (15-37); BILIRUBIN TOTAL 1.4 mg/dL (0.2-1.0); BLOOD UREA NITROGEN,BUN 43 mg/dL (7-18); CALCIUM 9.1 mg/dL (8.5-10.1); CARBON DIOXIDE,CO2 36.6 mmol/L (21.0-32.0); CHLORIDE,CL 103 mmol/L (98-107); CREATININE 1.63 mg/dL (0.51-1.17); GLUCOSE RANDOM 168 mg/dL (70-99); POTASSIUM,K 4.4 mmol/L (3.5-5.1); PRO B-TYPE NATRIUR PEPT,BNPPRO 1046 pg/mL (0-125); PROTEIN TOTAL,TP 6.7 g/dL (6.4-8.2); SODIUM,NA 145 mmol/L (136-145)
[2022-10-24 11:26] LABS: ANION GAP 9.8 meq/L (7-15); ESTIMATED GFR 40 mL/min (>=60)
[2022-10-24 12:27] LABS: INR 2.2; PROTHROMBIN TIME 22.6 SEC (9.6-11.3)
== END 2022-10-24 14:19 ==
LOC: LL.ED 09:49
DX: I11.0 Hypertensive heart disease with heart failure (principal); I50.30 Unspecified diastolic (congestive) heart failure; I48.91 Unspecified atrial fibrillation; E78.00 Pure hypercholesterolemia, unspecified; J44.9 Chronic obstructive pulmonary disease, unspecified; E11.9 Type 2 diabetes mellitus without complications; E66.9 Obesity, unspecified; Z87.891 Personal history of nicotine dependence; Z88.1 Allergy status to other antibiotic agents; Z88.8 Allergy status to other drugs, medicaments and biological substances; Z79.82 Long term (current) use of aspirin; Z79.4 Long term (current) use of insulin; Z79.899 Other long term (current) drug therapy
CPT/HCPCS: 36415; 71046; 80053; 80162; 83880; 84484; 85025; 85379; 85610; 93005; 93010; 99284; 99285

== ENCOUNTER 2023-01-03 15:45 | Emergency (ER) | payer MEDICARE, OTHER, MEDICAID ==
[2023-01-03] MEDS ORDERED: Sodium Chloride 0.9% 10 ML Syringe FLUSH PRN (15:58)
[2023-01-03 16:14] LABS: BASOPHILS ABSOLUTE AUTO 0.03 K/uL (0.00-0.20); BASOPHILS PERCENT AUTO 0.5 % (0.0-2.0); EOSINOPHILS ABSOLUTE AUTO 0.19 K/uL (0.00-0.50); EOSINOPHILS PERCENT AUTO 3.2 % (0.0-5.0); HEMATOCRIT 37.9 % (39.0-49.0); HEMOGLOBIN 12.6 g/dL (13.1-16.8); LYMPHOCYTES ABSOLUTE AUTO 1.05 K/uL (0.50-3.50); LYMPHOCYTES PERCENT AUTO 17.6 % (10.0-50.0); MEAN CORPUSCULAR HEMOGLOBIN 31.7 pg (28.2-33.3); MEAN CORPUSCULAR HGB CONC 33.2 g/dL (31.7-36.0); MEAN CORPUSCULAR VOLUME 95.5 fL (84.0-98.0); MONOCYTES ABSOLUTE AUTO 0.52 K/uL (0.00-1.00); MONOCYTES PERCENT AUTO 8.7 % (2.0-14.0); NEUTROPHILS ABSOLUTE AUTO 4.19 K/uL (1.40-7.00); PLATELET COUNT,PLT 125 K/uL (150-350); RED BLOOD CELL COUNT 3.97 M/uL (4.33-5.41); RED CELL DISTRIBUTION WIDTH 14.5 % (11.2-14.1)
[2023-01-03 16:34] LABS: ALANINE AMINOTRANSFERASE,ALT 19 U/L (12-78); ALBUMIN 3.3 g/dL (3.4-5.0); ALKALINE PHOSPHATASE 158 IU/L (46-116); ASPARTATE AMNIOTRANSFERASE,AST 18 U/L (15-37); BILIRUBIN TOTAL 1.7 mg/dL (0.2-1.0); BLOOD UREA NITROGEN,BUN 76 mg/dL (7-18); CALCIUM 9.6 mg/dL (8.5-10.1); CHLORIDE,CL 102 mmol/L (98-107); CREATININE 2.08 mg/dL (0.51-1.17); GLUCOSE RANDOM 232 mg/dL (70-99); PROTEIN TOTAL,TP 7.1 g/dL (6.4-8.2); SODIUM,NA 142 mmol/L (136-145)
[2023-01-03 16:37] LABS: ESTIMATED GFR 30 mL/min (>=60)
[2023-01-03 17:05] LABS: CORONAVIRUS COVID-19 NAA NEGATIVE (NEGATIVE); INFLUENZA A NAA NEGATIVE (NEGATIVE); INFLUENZA B NAA NEGATIVE (NEGATIVE); RESPIRATORY SYNCYTIAL VIR NAA NEGATIVE (NEGATIVE)
[2023-01-03 17:34] LABS: PROTHROMBIN TIME 28.8 SEC (9.0-11.1)
== END 2023-01-03 19:25 ==
LOC: LL.ED 15:45
DX: R89.2 Abnormal level of other drugs, medicaments and biological substances in specimens from other organs, systems and tissues (principal); E72.20 Disorder of urea cycle metabolism, unspecified; E78.00 Pure hypercholesterolemia, unspecified; E11.9 Type 2 diabetes mellitus without complications; I10 Essential (primary) hypertension; I48.91 Unspecified atrial fibrillation; Z20.822 Contact with and (suspected) exposure to COVID-19; Z95.5 Presence of coronary angioplasty implant and graft; E66.9 Obesity, unspecified; Z79.01 Long term (current) use of anticoagulants; Z79.4 Long term (current) use of insulin; Z79.899 Other long term (current) drug therapy; Z88.6 Allergy status to analgesic agent; Z88.8 Allergy status to other drugs, medicaments and biological substances
CPT/HCPCS: 0241U; 36415; 70450; 71045; 80053; 80162; 82140; 83605; 84484; 85025; 85610; 99285